=== PATIENT | male | born 1985 | race Caucasian/White ===

== ENCOUNTER 2023-12-24 09:56 | Day surgery (SDC) | payer BC ==
[2023-12-18 13:59] LABS: BASOPHILS # (AUTO) 0.1 X10'3 (0-0.2); EOSINOPHILS # (AUTO) 0.3 X10'3 (0-0.9); EOSINOPHILS % (AUTO) 3.2 % (0-6); LYMPHOCYTES # (AUTO) 2.4 X10'3 (1.1-4.8); LYMPHOCYTES % (AUTO) 30.9 % (21-51); MEAN CORPUSCULAR HEMOGLOBIN 31.7 PG (27.0-31.0); MEAN CORPUSCULAR HGB CONC 35.2 g/dL (33.0-36.5); MEAN CORPUSCULAR VOLUME 90.2 FL (78-98); MONOCYTES # (AUTO) 0.5 X10'3 (0-0.9); MONOCYTES % (AUTO) 6.8 % (2-12); NEUTROPHILS # (AUTO) 4.6 X10'3 (1.8-7.7); NEUTROPHILS % (AUTO) 58.1 % (42-75); PRE OP HEMATOCRIT 44.6 % (42.0-52.0); PRE OP HEMOGLOBIN 15.7 g/dL (14.0-17.9); PRE OP PLATELET COUNT 224 X10'3 (140-440); PRE OP WHITE BLOOD COUNT 7.9 10'3 (4.8-10.8); RED BLOOD COUNT 4.94 X10'6 (4.70-6.10)
[2023-12-18 14:15] LABS: ALBUMIN 4.1 G/DL (3.4-5.0); ALBUMIN/GLOBULIN RATIO 1.1 (1.1-1.5); ALKALINE PHOSPHATASE 71 IU/L (46-116); BLOOD UREA NITROGEN 17 MG/DL (7-18); BUN/CREATININE RATIO 15.3 (10.0-20.0); CHLORIDE 107 MMOL/L (99-107); CREATININE 1.11 MG/DL (0.60-1.10); PRE OP ALT 34 U/L (30-65); PRE OP ANION GAP 2 (8-16); PRE OP AST 18 U/L (10-37); PRE OP BILIRUB, TOTAL 0.6 MG/DL (0.0-1.0); PRE OP GLUCOSE 90 MG/DL (70-104); PRE OP POTASSIUM 3.9 MMOL/L (3.4-5.1); PRE OP SODIUM 138 MMOL/L (135-145); TOTAL CARBON DIOXIDE 28.8 MMOL/L (24-32); eGFR 75 ML/MIN
[2023-12-24] VITALS (14 sets, daily range): BP systolic 98–118; BP diastolic 64–80; PULSE 67–82; RESP 10–20; TEMP 97.9; O2SAT 73–97
[~2023-12-24] VITALS: Ht 182.9 cm; Wt 115.9 kg
[2023-12-24] MEDS: DOCUMENT DATE & TIME OF BETA-BLOCKER PO ONE (07:00)
[~2023-12-24 09:56] MED LIST: BUPR150T21 PO; PROP40TA7 PO; TIRZ5PEN3 SQ
[2023-12-24] MEDS: famotidine 20mg tablet PO ONE (10:49)
[2023-12-24] MEDS: cefazolin 2gm/D5W 100mL 100 ML IV ONE (10:49)
[2023-12-24] MEDS: ringers solution, lacted 1,000 ML IV SCH (10:50)
[2023-12-24] MEDS ORDERED: fentaNYL/PF 50MCG/1 ML 2ML syringe ONE (11:50)
[2023-12-24] MEDS ORDERED: sevoflurane 250ml liquid IH ONE (12:05)
[2023-12-24] MEDS: BUPIVAcaine 2.5mg/ml inj 50ml vial (contains preservative) ONE ×2 (12:24→12:25)
[2023-12-24] MEDS: BUPIVACAINE liposomal/PF 13.3 MG/ML vial IM ONE (12:24)
[2023-12-24] MEDS: LIDOcaine 1% (10mg/ml)w/preservative inj. 20ml MDV ONE (12:25)
[2023-12-24] MEDS ORDERED: sugammadex 200mg/2ml injection IV ONE (13:10)
[2023-12-24] MEDS ORDERED: HYDROmorphone 1 mg/ml syringe ONE (13:15)
[2023-12-24] MEDS ORDERED: oxyCODONE/APAP 5-325mg tablet PO PRN (13:35)
== END 2023-12-24 15:01 | disposition home or self-care (01) ==
LOC: PAS 09:56
PROVIDERS: ATTEND Surgery
DX: K42.0 Umbilical hernia with obstruction, without gangrene (principal); G89.18 Other acute postprocedural pain; F41.9 Anxiety disorder, unspecified; F32.A Depression, unspecified; G47.33 Obstructive sleep apnea (adult) (pediatric); Z87.891 Personal history of nicotine dependence; Z79.899 Other long term (current) drug therapy
CPT/HCPCS: 36415; 49594; 64488; 80053; 82948; 85025; C1781; C9290; J0690; J1100; J1170; J1885; J2405; J2704; J3010; J3490; J7030; J7120; Z7506; Z7508; Z7512; A4215; A4618